=== PATIENT | male | born 1965 | race Caucasian/White ===

== ENCOUNTER 2017-06-22 19:25 | Emergency (ER) | payer OTHER ==
[~2017-06-22] VITALS: Ht 170.2 cm; Wt 98.9 kg
[2017-06-22 19:45] VITALS: BP_SYST 160
[2017-06-22] MEDS ORDERED: LIDOCAINE 1% 10 MG/ML, 20 ML MDV INJ ONE (21:00)
[2017-06-22 22:05] VITALS: BP_SYST 152
== END 2017-06-22 22:05 | disposition home or self-care (01) ==
LOC: SED 19:25
DX: S52.532A Colles' fracture of left radius, initial encounter for closed fracture (principal); R03.0 Elevated blood-pressure reading, without diagnosis of hypertension; W19.XXXA Unspecified fall, initial encounter; Y93.89 Activity, other specified; Y92.89 Other specified places as the place of occurrence of the external cause; Y99.8 Other external cause status
CPT/HCPCS: 25605; 73100; 73110; 99284; J2001